=== PATIENT | male | born 1975 | race Caucasian/White ===

== ENCOUNTER 2016-04-04 15:46 | Observation (INO) | payer BC, OTHER ==
[2016-04-04] VITALS (7 sets, daily range): BP systolic 125–157; BP diastolic 72–91; PULSE 78–94; RESP 16–20; TEMP 97.7–98.4; O2SAT 98–100
[~2016-04-04] VITALS: Ht 182.9 cm; Wt 128.0 kg
[~2016-04-04 15:46] MED LIST: FLUO10CA4 PO; PRAV20 PO; Z.0.NO CURRENT MEDS; ZOLP1TAB32 PO
--- NOTE | 2016-04-04 16:06 | PD ---
HPI Chief Complaint: Chest Pain Time Seen by Provider: 15:54 Travel History International Travel<30 days: No Contact w/Intl Traveler<30days: No Traveled to known affect area: No History of Present Illness HPI 40-year-old male complains of chest pain. Patient states that the chest pain started about 2 weeks ago. Patient states that he has chest pain on the average about 3 times a day. Patient states that the pains aching pain started on the left chest with radiation to left-sided neck left shoulder and left arm. Patient states that the chest pain usually lasted about half an hour before subsided. Patient states that the pain is not associate with exertion. Patient denies any nausea vomiting diaphoresis or palpitations with the chest pain. Patient denies any history of CAD. Patient has history of hypertension, diet control, diabetes, diet control, hyperlipidemia. Patient was on pravastatin for cholesterol however ran out of medication and has not taking it because of financial situation. Patient is a nonsmoker. Patient has family history of heart disease. On a scale of 1-10 the pain is a 5. PFSH Past Medical History Asthma: No Blood Disorders: No Anxiety: No Depression: Yes Cancer: No Cardiovascular Problems: No High Cholesterol: Yes Cerebrovascular Accident: No Diminished Hearing: No Endocrine: No Genitourinary: No Headaches: No Immune Disorder: No Musculoskeletal: Yes Neurologic: Yes Psychiatric: Yes Reproductive: Yes Respiratory: Yes Migraines: Yes Seizures: No Sleep Apnea: No Past Surgical History AICD: No Arteriovenous Shunt: No Cholecystectomy: Yes Insulin Pump: No Joint Replacement: No Pacemaker: No Other Surgery: No Social History Alcohol Use: No Tobacco Use: No Substance Use: No Allergies-Medications (Allergen,Severity, Reaction): Coded Allergies: PEANUTS (Verified Allergy, Mild, 09/09/12) Reported Meds & Prescriptions Reported Meds & Active Scripts Active Review of Systems General / Constitutional: No: Fever Eyes: No: Visual changes HENT: No: Headaches Cardiovascular: Positive: Chest Pain or Discomfort Respiratory: No: Shortness of Breath Gastrointestinal: No: Abdominal Pain Genitourinary: No: Dysuria Musculoskeletal: No: Pain Skin: No Rash Neurologic: No: Weakness Psychiatric: No: Depression Endocrine: No: Polydipsia Hematologic/Lymphatic: No: Easy Bruising Physical Exam Narrative GENERAL: Well-nourished, well-developed patient. SKIN: Warm and dry. HEAD: Normocephalic. EYES: No scleral icterus. No injection or drainage. NECK: Supple, trachea midline. No JVD or lymphadenopathy. CARDIOVASCULAR: Regular rate and rhythm without murmurs, gallops, or rubs. RESPIRATORY: Breath sounds equal bilaterally. No accessory muscle use. GASTROINTESTINAL: Abdomen soft, non-tender, nondistended. MUSCULOSKELETAL: No cyanosis, or edema. BACK: Nontender without obvious deformity. No CVA tenderness. Neurologic exam normal. Data Data Last Documented VS Vital Signs Date Time Temp Pulse Resp B/P Pulse Ox O2 Delivery O2 Flow Rate FiO2 04/04/16 16:03 18 100 Room Air 04/04/16 15:50 98.4 94 157/91 Orders Electrocardiogram (04/04/16 16:00) Complete Blood Count With Diff (04/04/16 16:00) Comprehensive Metabolic Panel (04/04/16 16:00) Creatine Kinase (Cpk) (04/04/16 16:00) Troponin I (04/04/16 16:00) Prothrombin Time / Inr (Pt) (04/04/16 16:00) Act Partial Throm Time (Ptt) (04/04/16 16:00) Chest, Single Ap (04/04/16 16:00) Iv Access Insert/Monitor (04/04/16 16:00) Ecg Monitoring (04/04/16 16:00) Oximetry (04/04/16 16:00) Labs Laboratory Tests Test 04/04/16 16:05 White Blood Count 5.7 TH/MM3 Red Blood Count 4.91 MIL/MM3 Hemoglobin 13.4 GM/DL Hematocrit 40.4 % Mean Corpuscular Volume 82.3 FL Mean Corpuscular Hemoglobin 27.3 PG Mean Corpuscular Hemoglobin 33.2 % Concent Red Cell Distribution Width 13.6 % Platelet Count 330 TH/MM3 Mean Platelet Volume 7.1 FL Neutrophils (%) (Auto) 45.8 % Lymphocytes (%) (Auto) 43.2 % Monocytes (%) (Auto) 8.1 % Eosinophils (%) (Auto) 2.2 % Basophils (%) (Auto) 0.7 % Neutrophils # (Auto) 2.7 TH/MM3 Lymphocytes # (Auto) 2.4 TH/MM3 Monocytes # (Auto) 0.5 TH/MM3 Eosinophils # (Auto) 0.1 TH/MM3 Basophils # (Auto) 0.0 TH/MM3 CBC Comment DIFF FINAL Differential Comment Prothrombin Time 10.5 SEC Prothromb Time International 1.0 RATIO Ratio Activated Partial 30.3 SEC Thromboplast Time Sodium Level 141 MEQ/L Potassium Level 3.6 MEQ/L Chloride Level 106 MEQ/L Carbon Dioxide Level 27.9 MEQ/L Anion Gap 7 MEQ/L Blood Urea Nitrogen 11 MG/DL Creatinine 0.83 MG/DL Estimat Glomerular Filtration 102 ML/MIN Rate Random Glucose 99 MG/DL Calcium Level 9.0 MG/DL Total Bilirubin 0.4 MG/DL Aspartate Amino Transf 19 U/L (AST/SGOT) Alanine Aminotransferase 48 U/L (ALT/SGPT) Alkaline Phosphatase 69 U/L Total Creatine Kinase 92 U/L Troponin I LESS THAN 0.02 NG/ML Total Protein 7.1 GM/DL Albumin 3.6 GM/DL [facility] Medical Decision Making Medical Screen Exam Complete: Yes Emergency Medical Condition: Yes Interpretation(s) 1606 p.m. EKG shows sinus rhythm with right bundle-branch block. 1702 p.m. Last Impressions Chest X-Ray 04/04/16 1600 Signed Impressions: Service Date/Time: March 16:18 - CONCLUSION: 1. Punctate granulomatous calcifications. Stable exam compared to prior. Han Mejía MD 1702 p.m. CBC within normal limit. CMP within normal limit. Cardiac enzymes are normal. Differential Diagnosis Differential diagnosis including musculoskeletal, angina, FL, PE, pneumothorax. Narrative Course 40-year-old male with chest pain. History hypertension and diabetes on diet control. History of dyslipidemia. Positive for family history of heart disease. Aspirin 325 g by mouth given. Patient will be admitted to the chest pain center. Diagnosis Primary Impression: Chest pain Qualified Code: R07.9 - Chest pain, unspecified type Admitting Information Admitting Physician Requests: Sajan Melendrez MD Apr 04, 2016 16:06
[2016-04-04 16:27] LABS: AUTOMATED NEUTROPHIL # 2.7 TH/MM3 (1.8-7.7); BASOPHIL % 0.7 % (0.0-2.0); EOSINOPHIL # 0.1 TH/MM3 (0-0.4); EOSINOPHIL % 2.2 % (0.0-4.0); HEMATOCRIT 40.4 % (39.0-51.0); HEMO FLAGS DIFF FINAL; LYMPH % 43.2 % (9.0-44.0); LYMPHOCYTE # 2.4 TH/MM3 (1.0-4.8); MEAN CELL VOLUME 82.3 FL (80.0-100.0); MEAN CORPUSCULAR HEMOGLOBIN 27.3 PG (27.0-34.0); MEAN CORPUSCULAR HGB CONC 33.2 % (32.0-36.0); MONO % 8.1 % (0.0-8.0); NEUT % 45.8 % (16.0-70.0); PLATELET COUNT 330 TH/MM3 (150-450); RED BLOOD COUNT 4.91 MIL/MM3 (4.50-5.90); RED CELL DISTRIBUTION WIDTH 13.6 % (11.6-17.2); WHITE BLOOD COUNT 5.7 TH/MM3 (4.0-11.0)
[2016-04-04 16:32] LABS: CHLORIDE 106 MEQ/L (98-107); POTASSIUM 3.6 MEQ/L (3.5-5.1); SODIUM (NA) 141 MEQ/L (136-145)
[2016-04-04 16:36] LABS: ANION GAP 7 MEQ/L (5-15); BICARBONATE 27.9 MEQ/L (21.0-32.0); BLOOD UREA NITROGEN 11 MG/DL (7-18)
[2016-04-04 16:38] LABS: APTT (PATIENT) 30.3 SEC (24.3-30.1); PROTHROMBIN TIME - PATIENT 10.5 SEC (9.8-11.6)
[2016-04-04 16:39] LABS: ALT (GPT) 48 U/L (12-78); AST (GOT) 19 U/L (15-37); GLOMERULAR FILTRATION RATE 102 ML/MIN (>89)
[2016-04-04 16:41] LABS: TOTAL BILIRUBIN ADULT 0.4 MG/DL (0.2-1.0)
[2016-04-04 16:42] LABS: ALKALINE PHOSPHATASE 69 U/L (45-117)
--- NOTE | 2016-04-04 16:45 | RADHPO ---
EXAM DATE/TIME: 04/04/2016 16:18 [place] COMPARISON: CHEST PA & LAT, December 16, 2011, 20:02. INDICATIONS : Patient states chest pains. MEDICAL HISTORY : Hypertension. Hypercholesterolemia. Diabetes mellitus type II. SURGICAL HISTORY : None. ENCOUNTER: Initial ACUITY: 1 day PAIN SCORE: 6/10 LOCATION: Bilateral chest FINDINGS: The heart is normal in size. There is a punctate granulomatous calcification in the right upper right lower lobe. The lungs are otherwise clear. The examination is stable when compared to previous study dated 12/16/11. CONCLUSION: 1. Punctate granulomatous calcifications. Stable exam compared to prior. Han Mejía MD on April 04, 2016 at 16:42 Board Certified Radiologist. This report was verified electronically.
[2016-04-04 16:51] LABS: CREATINE KINASE 92 U/L (39-308)
[2016-04-04] MEDS ORDERED: SODIUM CHLORIDE 0.9% FLUSH 5 ML FLUSH IVF PRN (17:15)
[2016-04-04] MEDS ORDERED: ASPIRIN 325 MG TAB PO ONE (17:15)
[2016-04-04] MEDS ORDERED: ONDANSETRON HCL 4 MG/2 ML VIAL IV PRN (17:15)
[2016-04-04] MEDS ORDERED: ACETAMINOPHEN 500 MG CPLT PO PRN (17:15)
[2016-04-04 20:01] LABS: CREATINE KINASE 85 U/L (39-308)
[2016-04-04 22:17] LABS: CREATINE KINASE 84 U/L (39-308)
[2016-04-05] VITALS: BP 117/76; PULSE 78; RESP 18; TEMP 96; O2SAT 99
[2016-04-05 04:00] VITALS: BP 107/69; PULSE 83; RESP 16; TEMP 96.7; O2SAT 98
[2016-04-05 08:00] VITALS: BP 117/80; PULSE 78; RESP 16; TEMP 97.4; O2SAT 98
--- NOTE | 2016-04-05 08:19 | HHI.HP ---
[facility] Zuleika Caballero MD Admission Diagnosis chest pain Diagnoses: (1) Atypical chest pain Diagnosis: Principal (2) Neck strain Diagnosis: Principal Chief Complaint: chest pain Travel History International Travel<30 Days: No Contact w/Intl Traveler <30 Da: No Traveled to Known Affected Are: No History of Present Illness 40-year-old male with history of hypertension, hyperlipidemia, diabetes, thyroid disease, depression is admitted to chest pain center. Patient saw his primary care physician, Dr. Caballero yesterday who sent him to the ED. Patient states left-sided chest pain started one week ago. He states it has been constantly dull but will increase in severity once or twice per day and will feel "tight" when that occurs and additionally have some pain in the left neck and left upper arm. He states at worst the pain is a 10/10. He currently has a persistent dull pain over the left chest radiating it a 4-5/10. He states the pain is worse when he lays down. He denies any injury or heavy lifting recently. He has tried stretching and relaxing but nothing makes the pain better. He denies any exacerbation with exertion. Denies any associated shortness of breath. He admits to one episode of diaphoresis prior to going to bed on Friday night and that is when he called his primary care physician. He denies any fevers or chills, cold or cough symptoms, wheezing, or hemoptysis. He gets some swelling in his feet sometimes but no new leg swelling. He admits to some blurred vision with elevated blood pressure which he states was high yesterday, but denies any visual changes currently. Admits to headache currently. Denies any numbness or tingling or pain in the jaw or back. Denies any abdominal pain, nausea, vomiting, dysuria, or diarrhea. Denies any history of DVT or pulmonary embolus, recent trauma/surgery/hospitalization in the last 12 weeks, recent immobilization of the legs, or active cancer. Only went on a 3 hr flight earlier this month. Review of Systems Constitutional: COMPLAINS OF: Diaphoretic episodes, DENIES: Fever, Chills Eyes: COMPLAINS OF: Blurred vision (with elevated BP) Ears, nose, mouth, throat: DENIES: Throat pain, Ear Pain, Running Nose Respiratory: DENIES: Cough, Wheezing, Hemoptysis, Shortness of breath Cardiovascular: COMPLAINS OF: Chest pain, DENIES: Lower Extremity Edema Gastrointestinal: DENIES: Abdominal pain, Diarrhea, Nausea, Vomiting Genitourinary: DENIES: Dysuria Musculoskeletal: COMPLAINS OF: Neck pain, DENIES: Back pain Integumentary: DENIES: Rash Neurologic: COMPLAINS OF: Headache, DENIES: Paresthesias Past Family Social History Past Medical History Diabetes mellitus, currently diet controlled. Hypertension Hyperlipidemia Thyroid disease Depression Heartburn History of migraines Hospitalized for cholecystitis 04/18/06 Past Surgical History Cholecystectomy Reported Medications Patient is currently on NO medications due to previous insurance reasons. Previous medications included: Metformin 1000 mg in the morning and 500 mg qhs. Amlodipine Pravastatin Wellbutrin Possible thyroid medication Allergies: Coded Allergies: PEANUTS (Verified Allergy, Mild, 09/09/12) Family History Father: [place] at age 59. Diet at age 62 from brain cancer. Mother: Diabetes, asthma Sister: Migraines, thyroid disease. Brother: Fibromyalgia, social disorder. Social History Patient only drinks alcohol socially. Patient tried cigarettes in high school but was never a regular smoker. Denies history of illicit drug use. Physical Exam Vital Signs Vital Signs Date Time Temp Pulse Resp B/P Pulse Ox O2 Delivery O2 Flow Rate FiO2 04/05/16 08:00 97.4 78 16 117/80 98 04/05/16 04:00 96.7 83 16 107/69 98 04/05/16 00:00 96.0 78 18 117/76 99 04/04/16 21:04 97.7 85 20 125/73 98 04/04/16 19:23 98 21 04/04/16 19:10 99 Room Air 04/04/16 19:10 90 16 136/72 99 Room Air 04/04/16 17:07 78 16 127/78 99 Room Air 04/04/16 17:00 99 21 04/04/16 16:03 18 100 Room Air 04/04/16 15:50 98.4 94 18 157/91 100 Physical Exam GENERAL: BMI 38.3. This is a well-developed patient, in no apparent distress. SKIN: No rashes, ecchymoses or lesions. Cool and dry. HEAD: Atraumatic. Normocephalic. EYES: No scleral icterus. No injection or drainage. ENT: MMM. NECK: Trachea midline. Supple. Tender over left paracervical muscles. Patient has pain over left neck with right lateral range of motion. CHEST: Tender to palpation over left upper chest just inferior to shoulder and significant reproducible tenderness over left pectoral muscles; patient states pain increases to a 10/10 with palpation in this area. CARDIOVASCULAR: Regular rate and rhythm without murmurs, gallops, or rubs when sitting or supine. RESPIRATORY: Clear to auscultation. Breath sounds equal bilaterally. No wheezes , rales, or rhonchi. GASTROINTESTINAL: Abdomen soft, non-tender, nondistended. No guarding. MUSCULOSKELETAL: 2+ left distal radial pulse. Full flexion of left shoulder. No lower extremity edema or calf pain bilaterally. NEUROLOGICAL: Awake and alert. Motor grossly within normal limits. Five out of 5 muscle strength in bilateral arms and legs. Normal speech. Laboratory Laboratory Tests Test 04/04/16 04/04/16 04/04/16 16:05 19:10 21:42 White Blood Count 5.7 Red Blood Count 4.91 Hemoglobin 13.4 Hematocrit 40.4 Mean Corpuscular Volume 82.3 Mean Corpuscular Hemoglobin 27.3 Mean Corpuscular Hemoglobin 33.2 Concent Red Cell Distribution Width 13.6 Platelet Count 330 Mean Platelet Volume 7.1 Neutrophils (%) (Auto) 45.8 Lymphocytes (%) (Auto) 43.2 Monocytes (%) (Auto) 8.1 Eosinophils (%) (Auto) 2.2 Basophils (%) (Auto) 0.7 Neutrophils # (Auto) 2.7 Lymphocytes # (Auto) 2.4 Monocytes # (Auto) 0.5 Eosinophils # (Auto) 0.1 Basophils # (Auto) 0.0 CBC Comment DIFF FINAL Differential Comment Prothrombin Time 10.5 Prothromb Time International 1.0 Ratio Activated Partial 30.3 Thromboplast Time Sodium Level 141 Potassium Level 3.6 Chloride Level 106 Carbon Dioxide Level 27.9 Anion Gap 7 Blood Urea Nitrogen 11 Creatinine 0.83 Estimat Glomerular Filtration 102 Rate Random Glucose 99 Calcium Level 9.0 Total Bilirubin 0.4 Aspartate Amino Transf 19 (AST/SGOT) Alanine Aminotransferase 48 (ALT/SGPT) Alkaline Phosphatase 69 Total Creatine Kinase 92 85 84 Troponin I LESS THAN 0.02 LESS THAN 0.02 LESS THAN 0.02 Total Protein 7.1 Albumin 3.6 Result Diagram: 04/04/16 1605 04/04/16 1605 Imaging Last Impressions Chest X-Ray 04/04/16 1600 Signed Impressions: Service Date/Time: March 16:18 - CONCLUSION: 1. Punctate granulomatous calcifications. Stable exam compared to prior. Han Mejía MD Assessment and Plan Assessment and Plan 40-year-old male with: Atypical chest pain/musculoskeletal: Pain for 1 week constant with times of increasing severity. He does admit to feeling stressed. He has significant reproducible tenderness over the left neck as well as the left chest and states this is the same pain he was experiencing. Patient admits to pain when lying down, but there are no rubs noted and patient has not been recently ill, making pericarditis less likely. EKGs 3 personally interpreted with normal sinus rhythm and no evidence of ischemia. Troponin 3 less than 0.02. CBC and CMP unremarkable. Chest x-ray personally interpreted with punctate granulomatous calcifications in the right upper lobe which is stable since 12/16/11; no acute disease (patient made aware to f/u with PCP regarding this). -Patient received 325 mg of aspirin at 1733 yesterday. -Although patient has risk factors for cardiac disease, patient's pain is clearly musculoskeletal on exam. Patient had good relief with 30 mg IV Toradol. No need for stress test. Discussed with Dr. Little. Hypertension: BP 157/91 on arrival. Patient states he was on amlodipine in the past. -BP improved to 117/80 this morning. -Patient advised to follow up with PCP. Hyperlipidemia: Patient states his cholesterol is high. -He is advised to follow up with PCP in regards to restarting medication. Diabetes mellitus: Patient states he was on metformin but has not taken this since November. -His blood glucose level was 99 in the ED, and patient states he is controlling it with diet. -Patient is advised to discuss with PCP Other chronic medical problems include depression and thyroid disease for which patient is not currently on any medications. DVT prevention: Early ambulation Patient was informed that he has significant risk factors for heart disease and stroke and that he needs to follow-up with primary care physician in regards to possibly restarting medications as he does currently have insurance. Advised metformin is free at [facility]. He is advised to continue a diabetic heart healthy diet including limiting his salt intake and fried, fatty foods. Discharge disposition: Home in fair condition. Diet: Heart healthy, diabetic Activity: Patient advised to avoid heavy lifting or strenuous activity to avoid further muscle strain. Medications: Patient will be prescribed NSAID and muscle relaxant prn. He is advised against driving while taking muscle relaxants. He does have heartburn and takes probiotics, but is advised that he can take Prilosec or Zantac while taking anti-inflammatories to avoid gastric irritation, and is advised to take NSAID with food. Follow-up: PCP, Dr. Caballero 1 week. Discussed Condition With patient, Jania Warner Apr 05, 2016 08:19
[2016-04-05] MEDS ORDERED: KETOROLAC TROMETHAMINE 30 MG/ML (IVP) VIAL IV PUSH ONE (08:30)
[2016-04-05] MEDS: SODIUM CHLORIDE 0.9% FLUSH 5 ML FLUSH IVF SCH ×2 (08:55→09:00)
[2016-04-05 09:44] VITALS: PULSE 81
[2016-04-05] MEDS ORDERED: IBUP-232 PO (10:01)
[2016-04-05] MEDS ORDERED: ROBA500T PO (10:01)
--- NOTE | 2016-04-05 10:02 | HHI.DCPOC ---
Discharge Care Plan Diagnosis: (1) Musculoskeletal chest pain (2) Neck strain Your Health Problems Are: Chest Pain Goals to Promote Your Health * To prevent worsening of your condition and complications * To maintain your health at the optimal level Directions to Meet Your Goals Take your medications as prescribed Follow your dietary instruction Follow activity as directed Keep your appointments as scheduled Take your immunizations and boosters as scheduled If your symptoms worsen call your PCP, if no PCP go to Urgent Care Center or Emergency Room Smoking is Dangerous to Your Health. Avoid second hand smoke Call the 24-hour hour crisis hotline for domestic abuse at Jania Benoit Apr 05, 2016 10:01
--- NOTE | 2016-04-05 16:28 | EKG ---
Date Performed: 04/04/2016 Time Performed: 22:12:02 PTAGE: 40 years EKG: Sinus rhythm . Normal ECG PREVIOUS TRACING : 04/04/2016 19.02 Compared to prior tracing no significant change DOCTOR: Thee Guerrero Interpretating Date/Time 04/05/2016 16:27:23
--- NOTE | 2016-04-05 16:31 | EKG ---
Date Performed: 04/04/2016 Time Performed: 19:02:34 PTAGE: 40 years EKG: Sinus rhythm Normal ECG PREVIOUS TRACING : 05/06/2011 08.26 DOCTOR: Thee Guerrero Interpretating Date/Time 04/05/2016 16:29:20
--- NOTE | 2016-04-05 16:38 | EKG ---
Date Performed: 04/04/2016 Time Performed: 15:51:10 PTAGE: 40 years EKG: Sinus rhythm Right bundle branch block Abnormal ECG NO PREVIOUS TRACING DOCTOR: Thee Guerrero Interpretating Date/Time 04/05/2016 16:37:28
== END 2016-04-05 10:41 | disposition home or self-care (01) ==
LOC: PHED 15:46 → PHEDA 17:10 → PH3B 21:04
PROVIDERS: ADMIT Hospitalist; ATTEND Hospitalist
DX: R07.89 Other chest pain (principal); M79.1 Myalgia; S16.1XXA Strain of muscle, fascia and tendon at neck level, initial encounter; I10 Essential (primary) hypertension; E78.5 Hyperlipidemia, unspecified; E11.9 Type 2 diabetes mellitus without complications; E78.00 Pure hypercholesterolemia, unspecified; Z82.49 Family history of ischemic heart disease and other diseases of the circulatory system
CPT/HCPCS: 71010; 80053; 82550; 84484; 85025; 85610; 85730; 93005; 99285; G0378; J1885

== ENCOUNTER 2016-04-12 15:26 | Emergency (ER) | payer OTHER, BC ==
[~2016-04-12] VITALS: Ht 185.4 cm; Wt 130.0 kg
[~2016-04-12 15:26] MED LIST changes: -FLUO10CA4 PO; +IBUP-232 PO; -PRAV20 PO; +ROBA500T PO; -Z.0.NO CURRENT MEDS; -ZOLP1TAB32 PO
[2016-04-12 16:51] VITALS: BP 135/85; PULSE 88; RESP 18; TEMP 97.9; O2SAT 100
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
[2016-04-12 17:24] LABS: AUTOMATED NEUTROPHIL # 5.1 TH/MM3 (1.8-7.7); BASOPHIL # 0.1 TH/MM3 (0-0.2); BASOPHIL % 0.6 % (0.0-2.0); EOSINOPHIL # 0.1 TH/MM3 (0-0.4); EOSINOPHIL % 1.6 % (0.0-4.0); HEMATOCRIT 39.7 % (39.0-51.0); HEMO FLAGS DIFF FINAL; LYMPH % 29.8 % (9.0-44.0); LYMPHOCYTE # 2.5 TH/MM3 (1.0-4.8); MEAN CELL VOLUME 78.4 FL (80.0-100.0); MEAN CORPUSCULAR HEMOGLOBIN 27.9 PG (27.0-34.0); MEAN CORPUSCULAR HGB CONC 35.5 % (32.0-36.0); MONO % 7.8 % (0.0-8.0); NEUT % 60.2 % (16.0-70.0); PLATELET COUNT 271 TH/MM3 (150-450); RED BLOOD COUNT 5.07 MIL/MM3 (4.50-5.90); RED CELL DISTRIBUTION WIDTH 14.2 % (11.6-17.2); WHITE BLOOD COUNT 8.5 TH/MM3 (4.0-11.0)
[2016-04-12] MEDS ORDERED: IOHEXOL 350 MG/ML 10 ML VIAL (for RAD DIAG) IV ONE (17:41)
[2016-04-12 17:50] LABS: BICARBONATE 25.5 MEQ/L (21.0-32.0); POTASSIUM 3.8 MEQ/L (3.5-5.1)
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
[2016-04-12] MEDS ORDERED: IBUP-232 PO (18:45)
[2016-04-12] MEDS ORDERED: CYCL1TAB29 PO (18:45)
[2016-04-12] MEDS ORDERED: IBUPROFEN 600 MG TAB PO ONE (18:45)
[2016-04-12 19:17] VITALS: BP 137/82
== END 2016-04-12 19:42 | disposition home or self-care (01) ==
LOC: NEPB 15:26
DX: R10.30 Lower abdominal pain, unspecified (principal); M54.2 Cervicalgia; E78.00 Pure hypercholesterolemia, unspecified; E11.9 Type 2 diabetes mellitus without complications; I10 Essential (primary) hypertension; Z87.39 Personal history of other diseases of the musculoskeletal system and connective tissue; Z86.69 Personal history of other diseases of the nervous system and sense organs; Z86.59 Personal history of other mental and behavioral disorders; V49.88XA Car occupant (driver) (passenger) injured in other specified transport accidents, initial encounter; Y92.410 Unspecified street and highway as the place of occurrence of the external cause
CPT/HCPCS: 71010; 72040; 72170; 74177; 80048; 85025; 99284; Q9967